=== PATIENT | female | born 1975 | race Caucasian/White ===

== ENCOUNTER 2018-04-18 05:11 | Emergency (ER) | payer OTHER ==
[~2018-04-18] VITALS: Ht 154.9 cm; Wt 50.0 kg
[2018-04-18] MEDS ORDERED: DILTIAZEM 5 MG/ML, 5ML IVPush STA ×2 (05:45→06:02)
[2018-04-18] MEDS ORDERED: ASPIRIN 81 MG TABLET CHEW ONE (05:49)
[2018-04-18] MEDS ORDERED: DILTIAZEM 5 MG/ML, 5ML ONE ×2 (05:50→06:08)
[2018-04-18] MEDS ORDERED: ASPIRIN 81 MG TABLET CHEW PO ONE (06:00)
[2018-04-18] MEDS ORDERED: SODIUM CHLORIDE FLUSH 10ML SYR IVF ONE (06:00)
[2018-04-18] MEDS ORDERED: SODIUM CHLORIDE 0.9% 1,000ML IVBOLUS ONE (06:00)
[2018-04-18] MEDS ORDERED: DILTIAZEM 125 MG in DEXTROSE 5% 100 ML IV SCH (06:02)
[2018-04-18 06:11] LABS: BASOPHILS # (AUTO) 0.02 x10^3/uL (0-0.1); BASOPHILS % (AUTO) 0 % (0-1); EOSINOPHILS # (AUTO) 0.14 x10^3/uL (0-0.4); EOSINOPHILS % (AUTO) 3 % (1-7); LYMPHOCYTES # (AUTO) 1.35 x10^3/uL (1-3.4); LYMPHOCYTES % (AUTO) 29 % (22-44); MD NO; MEAN CORPUSCULAR HEMOGLOBIN 30.6 pg (27.0-34.8); MEAN CORPUSCULAR HGB CONC 34.1 g/dL (32.4-35.8); MEAN CORPUSCULAR VOLUME 89.8 fL (80-100); MEAN PLATELET VOLUME 7.4 fL (7.4-10.4); MONOCYTES # (AUTO) 0.53 x10^3/uL (0.2-0.8); MONOCYTES % (AUTO) 11 % (2-9); NEUTROPHILS % (AUTO) 56 % (42-75); PLATELET COUNT 264 x10^3/uL (130-400); RED BLOOD COUNT 4.68 x10^6/uL (3.82-5.3); RED CELL DISTRIBUTION WIDTH 12.3 % (9.6-15.2)
[2018-04-18 06:21] LABS: INTERNATIONAL NORMALIZED RATIO 0.97 (0.93-1.1); PROTHROMBIN TIME 10.1 Seconds (9.6-11.5)
[2018-04-18 06:23] LABS: ALBUMIN 3.4 g/dL (3.4-5.0); ANION GAP 10 mmol/L (5-15); CALCIUM 8.5 mg/dL (8.5-10.1); CHLORIDE 112 mmol/L (98-107)
[2018-04-18 06:29] LABS: ALANINE AMINOTRANSFERASE 89 U/L (12-78); ALKALINE PHOSPHATASE 128 U/L (45-117); BILIRUBIN,TOTAL 0.4 mg/dL (0.2-1.0); CREATININE 0.69 mg/dL (0.55-1.02); T4 (THYROXINE) 15.6 mcg/dL (4.8-13.9); TOTAL PROTEIN 6.8 g/dL (6.4-8.2); TROPONIN I < 0.015 ng/mL (0.000-0.045)
[2018-04-18 06:40] LABS: THYROID STIMULATING HORMONE < 0.005 mIU/L (0.358-3.740)
[2018-04-18] MEDS ORDERED: LEVO125T PO (06:58)
[2018-04-18] MEDS ORDERED: LORA10TA72 PO (06:59)
[2018-04-18] MEDS ORDERED: ETOMIDATE 20 MG/10 ML ONE (07:24)
[2018-04-18] MEDS ORDERED: ETOMIDATE 20 MG/10 ML IV ONE (07:30)
[2018-04-18] MEDS ORDERED: METOPROLOL TARTRATE 25 MG TABLET ONE (09:37)
[2018-04-18] MEDS ORDERED: APIXABAN 5 MG TABLET ONE (09:37)
[2018-04-18 09:41] VITALS: BP 98/70
[2018-04-18] MEDS ORDERED: APIXABAN 5 MG TABLET PO ONE (10:00)
[2018-04-18] MEDS ORDERED: METOPROLOL SUCCINATE 25 MG TAB.ER.24H PO ONE (10:00)
== END 2018-04-18 10:29 | disposition home or self-care (01) ==
LOC: ED 06:13
DX: I48.91 Unspecified atrial fibrillation (principal); R94.5 Abnormal results of liver function studies; Z79.890 Hormone replacement therapy; E03.9 Hypothyroidism, unspecified
CPT/HCPCS: 36415; 71045; 80053; 83735; 83880; 84436; 84443; 84484; 84703; 85025; 85610; 85730; 92960; 93005; 93306; 96365; 96366; 96376; 99291; J7030; 96375